=== PATIENT | female | born 1945 | race Hispanic/Latino ===

== ENCOUNTER 2021-05-17 03:39 | Emergency (ER) | payer OTHER, MEDICARE ==
[2021-05-17] MEDS ORDERED: Morphine 4 MG/ML VIAL ONE (04:13)
== END 2021-05-17 05:21 | disposition home or self-care (01) ==
LOC: ERS 03:39
DX: S16.1XXA Strain of muscle, fascia and tendon at neck level, initial encounter (principal); M54.12 Radiculopathy, cervical region; W01.0XXA Fall on same level from slipping, tripping and stumbling without subsequent striking against object, initial encounter
CPT/HCPCS: 93005; 96372; J2270